=== PATIENT | male | born 1955 | race Caucasian/White ===

== ENCOUNTER → 2020-08-14 | Outpatient (CLI) | payer SELFPAY ==
[2020-08-14 08:58] LABS: HEMOGLOBIN 14.3 gm/dl (14.0-17.5); RED BLOOD COUNT 4.84 M/UL (4.20-5.50); WHITE BLOOD COUNT 6.6 K/UL (4.5-11.0)
[2020-08-14 09:21] LABS: BUN/CREATININE RATIO 24 (0-10)
[2020-08-15 09:14] LABS: VITAMIN D, 25-HYDROXY 66.6 ng/mL (30.0-100.0)
== END ==
LOC: LAB 07:53
PROVIDERS: Family Medicine
DX: Z12.5 Encounter for screening for malignant neoplasm of prostate (principal); E78.5 Hyperlipidemia, unspecified; E55.9 Vitamin D deficiency, unspecified; R53.83 Other fatigue
CPT/HCPCS: 36415; 80053; 80061; 84153; 84439; 84443; 84681; 85027

== ENCOUNTER → 2021-09-16 | Outpatient (CLI) | payer MEDICARE ==
[2021-09-16 10:08] LABS: HEMOGLOBIN 13.6 gm/dl (14.0-17.5); RED BLOOD COUNT 4.52 M/UL (4.20-5.50); WHITE BLOOD COUNT 6.3 K/UL (4.5-11.0)
[2021-09-17 07:12] LABS: A/G RATIO 1.7 (1.2-2.2); ALKALINE PHOSPHATASE, S 62 IU/L (44-121); ALT (SGPT) 18 IU/L (0-44); AST (SGOT) 19 IU/L (0-40); BILIRUBIN, TOTAL 0.3 mg/dL (0.0-1.2); BUN 31 mg/dL (8-27); BUN/CREATININE RATIO 32 (10-24); CALCIUM, SERUM 9.6 mg/dL (8.6-10.2); CARBON DIOXIDE, TOTAL 19 mmol/L (20-29); CHLORIDE, SERUM 106 mmol/L (96-106); CREATININE, SERUM 0.98 mg/dL (0.76-1.27); EGFR IF AFRICN AM 94 (>59); EGFR IF NONAFRICN AM 81 (>59); ESTIM. AVG GLU (EAG) 117 mg/dL (.); GLOBULIN, TOTAL 2.7 g/dL (1.5-4.5); GLUCOSE, SERUM 119 mg/dL (65-99); HEMOGLOBIN A1C 5.7 % (4.8-5.6); POTASSIUM, SERUM 5.3 mmol/L (3.5-5.2); PROTEIN, TOTAL, SERUM 7.4 g/dL (6.0-8.5); SODIUM, SERUM 142 mmol/L (134-144)
[2021-09-17 08:14] LABS: CHOLESTEROL, TOTAL 247 mg/dL (100-199); HDL CHOLESTEROL 62 mg/dL (>39); LDL CHOLESTEROL CALC 180 mg/dL (0-99); LDL/HDL RATIO 2.9 ratio (0.0-3.6); TRIGLYCERIDES 37 mg/dL (0-149); TSH 0.998 uIU/mL (0.450-4.500)
[2021-09-17 12:14] LABS: C-PEPTIDE, SERUM 1.9 ng/mL (1.1-4.4)
== END ==
LOC: LAB 09:11
PROVIDERS: Family Medicine
DX: Z12.5 Encounter for screening for malignant neoplasm of prostate (principal); E11.9 Type 2 diabetes mellitus without complications; E78.5 Hyperlipidemia, unspecified; E55.9 Vitamin D deficiency, unspecified
CPT/HCPCS: 36415; 80053; 80061; 82043; 83036; 84439; 84443; 84681; 85027; G0103

== ENCOUNTER → 2021-10-20 | Day surgery (SDC) | payer MEDICARE ==
[~2021-10-20] MED LIST: B COMPLEX1 EACH PO; DAILY VITAMIN1 EAC2 PO; VITAMIN B12-FO1 EACH PO; VITAMIN D21250 MCG PO; ZINC50 M2 PO
== END | disposition home or self-care (01) ==
LOC: OR 06:38
DX: D64.9 Anemia, unspecified (principal); D12.0 Benign neoplasm of cecum; K29.50 Unspecified chronic gastritis without bleeding; K20.90 Esophagitis, unspecified without bleeding; K44.9 Diaphragmatic hernia without obstruction or gangrene; N40.0 Benign prostatic hyperplasia without lower urinary tract symptoms; I10 Essential (primary) hypertension; E78.5 Hyperlipidemia, unspecified; E11.9 Type 2 diabetes mellitus without complications; Z79.899 Other long term (current) drug therapy; Z20.822 Contact with and (suspected) exposure to COVID-19
CPT/HCPCS: 82962; J2704; J7120

== ENCOUNTER → 2022-02-20 | Outpatient (CLI) | payer MEDICARE ==
[2022-02-20 07:14] LABS: HEMOGLOBIN 13.5 gm/dl (14.0-17.5); RED BLOOD COUNT 4.43 M/UL (4.20-5.50); WHITE BLOOD COUNT 6.1 K/UL (4.5-11.0)
[2022-02-20 07:44] LABS: BUN/CREATININE RATIO 23 (0-10)
[2022-02-21 09:15] LABS: CREATININE, URINE 88.4 mg/dL (Not Estab.)
== END ==
LOC: LAB 06:30
PROVIDERS: Family Medicine
DX: E11.9 Type 2 diabetes mellitus without complications (principal); E55.9 Vitamin D deficiency, unspecified; I10 Essential (primary) hypertension
CPT/HCPCS: 36415; 80053; 80061; 82043; 82570; 83735; 85027